=== PATIENT | male | born 1940 | race Hispanic/Latino ===

== ENCOUNTER 2019-01-23 18:55 | Inpatient (IN) | payer OTHER ==
[~2019-01-23] VITALS: Ht 165.1 cm; Wt 74.8 kg
[2019-01-23 19:59] LABS: APPEARANCE,URINE Clear (CLEAR); BILIRUBIN,URINE Negative (NEGATIVE); COLOR,URINE Yellow (YELLOW); GLUCOSE, URINE (UA) TRACE mg/dL (NEGATIVE); KETONES,URINE Negative (NEGATIVE); LEUKOCYTE ESTERASE ,URINE Negative (NEGATIVE); NITRATE,URINE Negative (NEGATIVE); OCCULT BLOOD,URINE Small (NEGATIVE); PROTEIN,URINE 300 mg/dL (NEGATIVE); UROBILINOGEN,URINE 0.2 mg/dL (0.2-1.0)
[2019-01-23 20:14] LABS: BACTERIA,URINE Few /HPF (None Seen); RBC,URINE 0-1 /HPF (0-1); WBC,URINE 0-1 /HPF (0-1)
[2019-01-23 20:15] LABS: AMORPHOUS SEDIMENT,UR Rare /LPF (None Seen); SQUAMOUS EPITHELIAL CELL,UR Rare /HPF (0-2)
[2019-01-23 20:16] LABS: ALBUMIN 3.5 g/dL (3.5-5.0); BILIRUBIN,TOTAL 0.3 mg/dL (0.2-1.0); CREATININE 7.5 mg/dL (0.5-1.5); POTASSIUM 5.6 mmol/L (3.5-5.1); TOTAL PROTEIN, SERUM 7.4 g/dL (6.0-8.3)
[2019-01-23] MEDS ORDERED: SODIUM CHLORIDE 0.9% 1000ML 1,000 ML IV ONE (20:34)
[2019-01-23 20:42] LABS: BASOPHILS % (AUTO) 0.8 % (0.0-5.0); EOSINOPHILS % (AUTO) 3.1 % (0.0-8.0); HEMATOCRIT 34.9 % (42-54); LYMPHOCYTES % (AUTO) 22.8 % (21.0-51.0); MEAN CORPUSCULAR HEMOGLOBIN 30.8 pg (27.0-33.0); MEAN CORPUSCULAR HGB CONC 33.6 g/dL (32.0-36.0); MEAN CORPUSCULAR VOLUME 91.9 fL (79-99); MONOCYTES % (AUTO) 8.8 % (3.0-13.0); NEUTROPHILS % (AUTO) 64.5 % (40.0-77.0); PLATELET COUNT (AUTO) 211 K/uL (130-400); RED CELL DISTRIBUTION WIDTH 13.8 % (11.0-15.5); WHITE BLOOD COUNT (AUTO) 6.3 K/uL (4.8-10.8)
[2019-01-23 20:54] LABS: INR 0.95 (0.85-1.15); PARTIAL THROMBOPLASTIN TIME 29.8 SEC (26.3-35.5)
[2019-01-23] MEDS ORDERED: ONDANSETRON HCL 4 MG/2 ML VIAL IV PRN (21:45)
[2019-01-23] MEDS ORDERED: ACETAMINOPHEN 325 MG TAB PO PRN (21:45)
[2019-01-23] MEDS ORDERED: SODIUM BICARB 50MEQ 50ML VIAL ONE (22:09)
[2019-01-23] MEDS ORDERED: DEXTROSE 50%-WATER 50 ML DISP.SYRIN IV ONE (22:10)
[2019-01-23] MEDS ORDERED: INSULIN HUMULIN R 100 UNIT/ML 3ML ONE (22:10)
[2019-01-23 23:42] VITALS: BP 147/59
[2019-01-24] VITALS (13 sets, daily range): BP systolic 99–143; BP diastolic 55–89
[2019-01-24] MEDS ORDERED: INSU300I SQ (02:52)
[2019-01-24] MEDS ORDERED: ROSU20TA31 PO (02:52)
[2019-01-24] MEDS ORDERED: INSU100I3 SQ (02:52)
[2019-01-24] MEDS ORDERED: TAMS-1 PO (02:52)
[2019-01-24] MEDS ORDERED: LOSA25TA41 PO (02:52)
[2019-01-24 04:12] LABS: BASOPHILS % (AUTO) 0.7 % (0.0-5.0); EOSINOPHILS % (AUTO) 2.8 % (0.0-8.0); HEMATOCRIT 30.7 % (42-54); LYMPHOCYTES % (AUTO) 23.2 % (21.0-51.0); MEAN CORPUSCULAR HEMOGLOBIN 31.3 pg (27.0-33.0); MEAN CORPUSCULAR HGB CONC 33.9 g/dL (32.0-36.0); MEAN CORPUSCULAR VOLUME 92.4 fL (79-99); MONOCYTES % (AUTO) 9.3 % (3.0-13.0); PLATELET COUNT (AUTO) 200 K/uL (130-400); RED BLOOD CELL COUNT(AUTO) 3.32 MIL/uL (4.50-6.20); RED CELL DISTRIBUTION WIDTH 13.7 % (11.0-15.5); WHITE BLOOD COUNT (AUTO) 7.2 K/uL (4.8-10.8)
[2019-01-24 04:32] LABS: CREATININE 7.1 mg/dL (0.5-1.5); POTASSIUM 4.6 mmol/L (3.5-5.1)
--- NOTE | 2019-01-24 05:45 | NUR ---
CHEST PRESSURE Patient AA&O X3 with at bedside. Patient states he is nauseated, dizzy, and starting to feel pressure on chest. On a pain scale of 0-10, patient states a 6. Discomfort/pain does not radiate. No shortness of breath or distress. Blood pressure:147/65, Heart rate:77, R: 18, O2Sat: 99% in room air, Temp: 98.0. Paged MD solar fabrication technician; KATT Fleming BULLET SLUGS INSPECTOR returned page. Informed BULLET SLUGS INSPECTOR of patient's diagnose and chest discomfort. Obtained order for stat EKG with cardiac panel and give Morphine 2 mg IVP. Patient may have Morphine 2 mg IVP Q6H prn. Will follow orders and will continue to monitor patient.
[2019-01-24] MEDS ORDERED: MORPHINE SULFATE 2 MG/ML 1ML SYG ONE (05:51)
[2019-01-24] MEDS ORDERED: MORPHINE SULFATE 2 MG/ML 1ML SYG IVP PRN (06:00)
[2019-01-24 06:16] LABS: CREATINE KINASE, TOTAL 119 U/L (21-232); MYOGLOBIN 278 ng/mL (10-92); TROPONIN I < 0.04 ng/mL (0.00-0.06)
--- NOTE | 2019-01-24 06:45 | NUR ---
STATUS OF PATIENT Patient is resting in bed with spouse at bedside. AA&O X3. No shortness of breath or distress. Patient states he no longer feels chest pressure but continues to feel dizziness; but overall feels much better. Instructed patient to not get up alone and to call for assistance. Patient's bed is currently on a bed alarm to prevent falls. Patient states he understands and will call for assistance. Bed at it's lowest and locked position. Call light within reach.
[2019-01-24] MEDS: INSULIN HUMULIN R 100 UNIT/ML 3ML SQ SCH ×4 (07:30→21:00)
[2019-01-24] MEDS: TAMSULOSIN HCL 0.4 MG CAP.ER.24H PO SCH (08:27)
[2019-01-24] MEDS: FAMOTIDINE 20MG TAB 20 MG TAB PO SCH (08:28)
[2019-01-24] MEDS: LOSARTAN 50 MG TABLET PO SCH (08:28)
[2019-01-24] MEDS: HEPARIN SODIUM 5000UNIT/ML 1ML VIAL SQ SCH ×2 (08:32→20:03)
[2019-01-24] MEDS ORDERED: LACTULOSE 20 GM/30 ML UDCUP PO SCH (09:30)
--- NOTE | 2019-01-24 13:00 | NUR ---
INITIAL- POSS HD? MET W PT AND SPOUSE- PT AAOX3, LIVES WITH MATTHEW, WHO WILL PROVIDER TRNAPSORT, HAS NOT DME, DRIVES, IS INDP OF ALL ADLS, AND HAS BEEN FOLLOWING WITH DR. MON FOR SOME TIME, STATES HE HAS BEEN MANAGING HIS CKD AND WANTS A PERITONEAL CATHETER AND HAS ALREADY HAD THE TRAINING FOR PD AT THE CLINIC EXPECT HD TO START ON THIS ADMISSION DC PLAN HOME AFTER HD SET UP AND PD CATH PLACED Addendum: 01/24/19 at 1819 by TEE ARGUETA RN CM Amended: Links added.
[2019-01-24 13:17] LABS: CREATININE,URINE RANDOM 50 mg/dL (30-135); SODIUM,URINE RANDOM 58 mmol/l (40-220)
[2019-01-24] MEDS ORDERED: SODIUM BICARB 50MEQ 50ML VIAL ONE (15:41)
[2019-01-24] MEDS ORDERED: LIDOCAINE HCL 2% 20ML ONE (15:41)
[2019-01-24] MEDS: ROSUVASTATIN CALCIUM 20 MG PO SCH (20:03)
[2019-01-24 21:44] LABS: HEMOGLOBIN A1C 6.4 % (4.0-6.0)
[2019-01-24 21:48] LABS: ALBUMIN 2.9 g/dL (3.5-5.0); CREATININE 7.1 mg/dL (0.5-1.5)
[2019-01-24 22:07] LABS: % IRON SATURATION 31.6 % (30-44)
[2019-01-25 00:06] VITALS: BP 122/58
[2019-01-25 04:15] VITALS: BP 120/81
[2019-01-25] MEDS: INSULIN HUMULIN R 100 UNIT/ML 3ML SQ SCH ×4 (05:31→20:34)
[2019-01-25 08:00] VITALS: BP 143/85
[2019-01-25 08:08] LABS: CREATININE 7.2 mg/dL (0.5-1.5)
[2019-01-25] MEDS: LOSARTAN 50 MG TABLET PO SCH (08:13)
[2019-01-25] MEDS: TAMSULOSIN HCL 0.4 MG CAP.ER.24H PO SCH (08:14)
[2019-01-25] MEDS: FAMOTIDINE 20MG TAB 20 MG TAB PO SCH (08:14)
[2019-01-25] MEDS: HEPARIN SODIUM 5000UNIT/ML 1ML VIAL SQ SCH ×2 (08:18→19:28)
[2019-01-25] MEDS ORDERED: ACETAMINOPHEN 325 MG TAB PO PRN (10:45)
[2019-01-25] MEDS ORDERED: LIDOCAINE HCL-MPF 1% 2ML VIAL IJ PRN (10:45)
[2019-01-25] MEDS ORDERED: HEPARIN SODIUM 5000UNIT/ML 1ML VIAL IJ PRN ×2 (10:45)
[2019-01-25] MEDS ORDERED: SODIUM CHLORIDE 0.9% 1000ML 1,000 ML IV PRN (10:45)
[2019-01-25] MEDS ORDERED: 0.9% SODIUM CHLORIDE 1000 ML IV BAG IV PRN (10:45)
[2019-01-25] MEDS ORDERED: NITROGLYCERIN 0.4 MG SL TAB SL PRN (10:45)
[2019-01-25 12:00] VITALS: BP 114/70
[2019-01-25 16:00] VITALS: BP 136/74
[2019-01-25] MEDS: ROSUVASTATIN CALCIUM 20 MG PO SCH (19:28)
[2019-01-25 20:00] VITALS: BP 131/80
[2019-01-26] VITALS: BP 118/77
[2019-01-26 03:40] VITALS: BP 116/75
[2019-01-26 06:10] LABS: HEMATOCRIT 31.8 % (42-54); MEAN CORPUSCULAR HEMOGLOBIN 31.1 pg (27.0-33.0); MEAN CORPUSCULAR HGB CONC 33.6 g/dL (32.0-36.0); MEAN CORPUSCULAR VOLUME 92.7 fL (79-99); PLATELET COUNT (AUTO) 183 K/uL (130-400); RED BLOOD CELL COUNT(AUTO) 3.43 MIL/uL (4.50-6.20); RED CELL DISTRIBUTION WIDTH 13.8 % (11.0-15.5); WHITE BLOOD COUNT (AUTO) 6.6 K/uL (4.8-10.8)
[2019-01-26 06:14] LABS: CREATININE 5.6 mg/dL (0.5-1.5); POTASSIUM 4.6 mmol/L (3.5-5.1)
[2019-01-26] MEDS: INSULIN HUMULIN R 100 UNIT/ML 3ML SQ SCH ×4 (06:35→20:16)
[2019-01-26 08:00] VITALS: BP 119/66
[2019-01-26] MEDS: LOSARTAN 50 MG TABLET PO SCH (09:11)
[2019-01-26] MEDS: FAMOTIDINE 20MG TAB 20 MG TAB PO SCH (09:11)
[2019-01-26] MEDS: TAMSULOSIN HCL 0.4 MG CAP.ER.24H PO SCH (09:11)
[2019-01-26 09:16] LABS: EOSINOPHILS % (MANUAL) 4 % (1-6); LYMPHOCYTES % (MANUAL) 19 % (22-44); MAN.DIFF COMMENT-IMPRESSION MANUAL DIFFERENTIAL; MONOCYTES % (MANUAL) 12 % (2-9); PLATELET MORPHOLOGY COMMENT ADEQUATE; SEGMENTED NEUTROPHILS % 65 % (40-70)
[2019-01-26] MEDS: LACTULOSE 20 GM/30 ML UDCUP PO PRN (09:19)
[2019-01-26] MEDS: HEPARIN SODIUM 5000UNIT/ML 1ML VIAL SQ SCH ×2 (09:19→20:15)
[2019-01-26 12:00] VITALS: BP 124/56
[2019-01-26 15:59] VITALS: BP 138/73
[2019-01-26 20:00] VITALS: BP 141/76
[2019-01-26] MEDS: ROSUVASTATIN CALCIUM 20 MG PO SCH ×2 (20:14→20:16)
[2019-01-27] VITALS (7 sets, daily range): BP systolic 105–142; BP diastolic 57–82
--- NOTE | 2019-01-27 03:22 | NUR ---
STATUS Pt resting quietly in bed,denies chest pain or discomfort.
[2019-01-27 04:50] LABS: EOSINOPHILS % (AUTO) 4.3 % (0.0-8.0); LYMPHOCYTES % (AUTO) 24.4 % (21.0-51.0); MEAN CORPUSCULAR HEMOGLOBIN 31.3 pg (27.0-33.0); MEAN CORPUSCULAR HGB CONC 34.4 g/dL (32.0-36.0); MONOCYTES % (AUTO) 10.5 % (3.0-13.0); NEUTROPHILS % (AUTO) 59.8 % (40.0-77.0); PLATELET COUNT (AUTO) 198 K/uL (130-400); RED BLOOD CELL COUNT(AUTO) 3.41 MIL/uL (4.50-6.20); RED CELL DISTRIBUTION WIDTH 13.7 % (11.0-15.5); WHITE BLOOD COUNT (AUTO) 6.6 K/uL (4.8-10.8)
[2019-01-27 05:06] LABS: POTASSIUM 4.6 mmol/L (3.5-5.1)
[2019-01-27] MEDS: INSULIN HUMULIN R 100 UNIT/ML 3ML SQ SCH ×4 (06:03→21:00)
[2019-01-27] MEDS: HEPARIN SODIUM 5000UNIT/ML 1ML VIAL SQ SCH ×2 (09:00→21:00)
--- NOTE | 2019-01-27 11:23 | NUR ---
SURGEON CÉSAR Brenner was paged to inform him of consult for placement of peritoneal dialysis catheter; pending for him to call back.
--- NOTE | 2019-01-27 12:00 | NUR ---
SURGEON FOLLOW UP Dr. Josue called back; informed him of consilt; stated he will come tomorrow to see patient.
--- NOTE | 2019-01-27 14:53 | NUR ---
RD NOTIFICATION DX: GBW, CKD. HX: DM, HTN, HYPERLIPIDEMIA, CKD. DIET: RENAL NON-DIALYSIS. PO 100% AND HAS GOOD APPETITE PER PT. LBM: 01/26. SKIN INTACT. NO NAUSEA, VOMITING OR DIARRHEA [id number]. PT NOW ON DIALYSIS. PT RECEIVING DIALYSIS TREATMENT [id number]. RD PROVIDED RENAL DIALYSIS DIET AND NUTRITION EDUCATION. PT VERBALIZED UNDERSTANDING AND ASKED QUESTIONS. PT WAS LEFT WITH NUTRITION HANDOUTS TO TAKE HOME. RD RECOMMENDS TO CHANGE DIET TO RENAL DIALYSIS. RD PROVIDED RENAL DIALYSIS NUTRITION AND DIET EDUCATION IN [place]. RD WILL CONTINUE TO MONITOR AND FOLLOW UP NEEDED. THANK YOU. Addendum: 01/27/19 at [address] RD Amended: Links added.
--- NOTE | 2019-01-27 14:54 | NUR ---
DIET EDUCATION PT NOW ON DIALYSIS. PT RECEIVING DIALYSIS TREATMENT [id number]. RENE PROVIDED RENAL DIALYSIS DIET AND NUTRITION EDUCATION. PT VERBALIZED UNDERSTANDING AND ASKED QUESTIONS. PT WAS LEFT WITH NUTRITION HANDOUTS TO TAKE HOME. Addendum: 01/27/19 at [address] Amended: Links added.
--- NOTE | 2019-01-27 15:19 | NUR ---
CM Note: Chanell Mari pending approval and chair time. CM met with pt and spouse discussed MD recommendations for outpatient dialysis. Pt and spouse agreeable, spouse signed [facility] for [facility]. Faxed order, clinicals, confirmation received. Pt pending permacath insertion and peritoneal access at this time. Pt pending approval and chair time. Primary nurse aware. CM to cont to follow up.
[2019-01-27] MEDS: FAMOTIDINE 20MG TAB 20 MG TAB PO SCH (18:51)
[2019-01-27] MEDS: LOSARTAN 50 MG TABLET PO SCH (18:51)
[2019-01-27] MEDS: TAMSULOSIN HCL 0.4 MG CAP.ER.24H PO SCH (18:51)
--- NOTE | 2019-01-27 19:00 | NUR ---
BRIONNA Wilkinson Rn,talking to pt and his re plan of care,Permacath placement in am and Dr Brenner to come tomorrow to evaluate re possible PD cath placement.Pt and seemed to understand,they are both Citizen Of [place] speaking.
--- NOTE | 2019-01-27 19:07 | NUR ---
CONSENT Obtained consent for PERM-A-CATH placement tomorrow. 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 Consent filed in chart.
[2019-01-27] MEDS: ROSUVASTATIN CALCIUM 20 MG PO SCH (21:00)
[2019-01-28] VITALS (13 sets, daily range): BP systolic 101–145; BP diastolic 41–90
[2019-01-28] MEDS: INSULIN HUMULIN R 100 UNIT/ML 3ML SQ SCH ×3 (05:59→21:00)
[2019-01-28 06:04] LABS: INR 0.94 (0.85-1.15); PROTHROMBIN TIME 9.9 SEC (9.6-11.6)
[2019-01-28 06:09] LABS: HEPATITIS Bs ANTIGEN SCREEN P Negative (Negative)
--- NOTE | 2019-01-28 06:28 | NUR ---
CHG Pt offered CHG bath per staff.
[2019-01-28] MEDS: HEPARIN SODIUM 5000UNIT/ML 1ML VIAL SQ SCH ×2 (09:00→21:14)
[2019-01-28] MEDS ORDERED: LIDOCAINE HCL 1% MDV 50ML VIAL ONE (11:55)
[2019-01-28] MEDS: ACETAMINOPHEN 325 MG TAB PO PRN (15:14)
[2019-01-28] MEDS: LOSARTAN 50 MG TABLET PO SCH (15:15)
[2019-01-28] MEDS: FAMOTIDINE 20MG TAB 20 MG TAB PO SCH (15:15)
[2019-01-28] MEDS: TAMSULOSIN HCL 0.4 MG CAP.ER.24H PO SCH (15:15)
--- NOTE | 2019-01-28 18:55 | NUR ---
NURSING NOTE DAY SHIFT Received patient at [facility] of shift in no distress. Had hemodialysis and a perm-a-cath plaed. Back from procedure and kept HOB elevated at 45 as ordered by MD. No issues. Medicated once for pain around insertion site area; and pain controlled. Dr. Brenner called and stated he will not be able to see patient today but that he will see patient tomorrow and he is not sure he will be able to insert peritoneal dialysis catheter tomorrow; possible the day after tomorrow. Patient and incoming nurse udpated. Patient stable and in no distress.
[2019-01-28] MEDS: ROSUVASTATIN CALCIUM 20 MG PO SCH (21:00)
--- NOTE | 2019-01-28 21:47 | NUR ---
COMFORT Pt aao x 3,watching tv.Denies pain or sob.Permacath to rt chest dressing dry and intact.
[2019-01-29 04:44] VITALS: BP 148/81
[2019-01-29] MEDS: INSULIN HUMULIN R 100 UNIT/ML 3ML SQ SCH ×4 (06:30→21:25)
[2019-01-29 07:00] VITALS: BP 129/73
[2019-01-29] MEDS: TAMSULOSIN HCL 0.4 MG CAP.ER.24H PO SCH (09:22)
[2019-01-29] MEDS: LOSARTAN 50 MG TABLET PO SCH (09:22)
[2019-01-29] MEDS: FAMOTIDINE 20MG TAB 20 MG TAB PO SCH (09:22)
[2019-01-29] MEDS: HEPARIN SODIUM 5000UNIT/ML 1ML VIAL SQ SCH ×2 (09:38→21:23)
--- NOTE | 2019-01-29 10:21 | NUR ---
CM Note: Chanell Mari pending approval and chair time Spoke to Trent mendez/Chanell [phone]. Pt has approval, chair time MWF 3rd shift. Aware pt pending peritoneal access placement. Primary nurse aware. CM to cont to follow up.
--- NOTE | 2019-01-29 10:24 | NUR ---
CM Note: Chanell Mari approval and chair time Spoke to Trent mendez/Chanell [phone]. Pt has approval, chair time MWF 3rd shift. Aware pt pending peritoneal access placement. Primary nurse aware. CM to cont to follow up.
[2019-01-29 11:00] VITALS: BP 124/61
--- NOTE | 2019-01-29 15:43 | NUR ---
CM Note: Pt given Chanell Mari instructions. CM met with pt made aware of approval for outpatient dialysis w/Chanell Adair. Aware to register Sunday morning if dc'd tomorrow or Sunday if pt stayed. Given instructions, aware to bring ID, insurance card, and all medication bottles during registration. Primary nurse aware. CM to cont to follow up.
[2019-01-29 16:00] VITALS: BP 107/49
[2019-01-29 20:00] VITALS: BP 116/70
[2019-01-29] MEDS: ROSUVASTATIN CALCIUM 20 MG PO SCH (21:00)
[2019-01-30] VITALS: BP 120/52
[2019-01-30] MEDS ORDERED: DEXTROSE 50%-WATER 50 ML DISP.SYRIN IV ONE (02:06)
[2019-01-30] MEDS ORDERED: DEXTROSE 50%-WATER 50 ML DISP.SYRIN IV PRN (02:30)
[2019-01-30] MEDS ORDERED: GLUCAGON 1MG KIT 1 MG ML IM PRN (02:30)
[2019-01-30 04:00] VITALS: BP 141/79
[2019-01-30 06:14] LABS: HEMATOCRIT 31.9 % (42-54); MEAN CORPUSCULAR HEMOGLOBIN 30.6 pg (27.0-33.0); MEAN CORPUSCULAR HGB CONC 33.1 g/dL (32.0-36.0); MEAN CORPUSCULAR VOLUME 92.6 fL (79-99); PLATELET COUNT (AUTO) 163 K/uL (130-400); RED BLOOD CELL COUNT(AUTO) 3.45 MIL/uL (4.50-6.20); RED CELL DISTRIBUTION WIDTH 13.3 % (11.0-15.5); WHITE BLOOD COUNT (AUTO) 6.3 K/uL (4.8-10.8)
[2019-01-30 06:29] LABS: CREATININE 5.3 mg/dL (0.5-1.5); PHOSPHORUS 4.3 mg/dL (2.5-4.9); POTASSIUM 4.2 mmol/L (3.5-5.1)
[2019-01-30] MEDS: INSULIN HUMULIN R 100 UNIT/ML 3ML SQ SCH ×4 (06:34→21:00)
[2019-01-30 07:11] VITALS: BP 129/64
[2019-01-30] MEDS: HEPARIN SODIUM 5000UNIT/ML 1ML VIAL SQ SCH ×2 (09:00→20:38)
--- NOTE | 2019-01-30 09:19 | NUR ---
PATIENT PENDING SURGERY . PER PATIENT HAS NOT EATEN OR DRANK ANY FLUIDS PAST MIDNIGHT
[2019-01-30 12:00] VITALS: BP 118/76
--- NOTE | 2019-01-30 12:20 | NUR ---
PATIENT ON DIALYSIS Addendum: 01/30/19 at 1224 by JUAN CARLOS RIVERA RN RN Amended: Links added.
[2019-01-30 16:00] VITALS: BP 129/73
[2019-01-30] MEDS: FAMOTIDINE 20MG TAB 20 MG TAB PO SCH (17:42)
[2019-01-30] MEDS: TAMSULOSIN HCL 0.4 MG CAP.ER.24H PO SCH (17:42)
[2019-01-30] MEDS: LOSARTAN 50 MG TABLET PO SCH (17:43)
[2019-01-30 20:00] VITALS: BP 118/62
[2019-01-30] MEDS: ROSUVASTATIN CALCIUM 20 MG PO SCH (20:37)
[2019-01-31] VITALS (26 sets, daily range): BP systolic 114–139; BP diastolic 39–80
[2019-01-31 04:52] LABS: INR 0.92 (0.85-1.15); PARTIAL THROMBOPLASTIN TIME 29.7 SEC (26.3-35.5); PROTHROMBIN TIME 9.7 SEC (9.6-11.6)
[2019-01-31] MEDS: INSULIN HUMULIN R 100 UNIT/ML 3ML SQ SCH ×4 (05:54→21:00)
[2019-01-31] MEDS: TAMSULOSIN HCL 0.4 MG CAP.ER.24H PO SCH (09:00)
[2019-01-31] MEDS: LOSARTAN 50 MG TABLET PO SCH (09:00)
[2019-01-31] MEDS: FAMOTIDINE 20MG TAB 20 MG TAB PO SCH (09:00)
[2019-01-31] MEDS ORDERED: BUPIVACAINE/PF 0.25% 30ML VIAL IJ ONE (12:23)
[2019-01-31] MEDS ORDERED: LIDOCAINE 1%-EPI 1:100,000 20 ML VIAL IJ ONE (12:23)
[2019-01-31] MEDS ORDERED: FENTANYL CITRATE PF 50 MCG/1 ML 2ML VIAL ONE (12:38)
[2019-01-31] MEDS ORDERED: PROPOFOL 10 MG/ML 20ML VIAL IV ONE (12:38)
[2019-01-31] MEDS ORDERED: LIDOCAINE PF 2% 5ML ABBOJECT ONE (12:38)
[2019-01-31] MEDS ORDERED: SUCCINYLCHOLINE 200MG/10ML SYR ONE (12:38)
[2019-01-31] MEDS ORDERED: ROCURONIUM 10MG/1ML SYR 10 MG/ML ML ONE (12:38)
--- NOTE | 2019-01-31 12:38 | NUR ---
PT UPDATE Pt off the floor for a procedure by Dr. Brenner
[2019-01-31] MEDS ORDERED: PHENYLEPHRINE HCL 10 MG/ML 1ML VIAL IV ONE (12:59)
[2019-01-31] MEDS ORDERED: SODIUM CHLORIDE 0.9% 10 ML VIAL ONE (12:59)
[2019-01-31] MEDS ORDERED: EPHEDRINE SULFATE 50 MG/ML AMPULE ONE (13:00)
[2019-01-31] MEDS ORDERED: NEOSTIGMINE 5MG/5ML SYR IV ONE (13:41)
[2019-01-31] MEDS ORDERED: GLYCOPYRROLATE 1 MG/5 ML SYRINGE ONE (13:41)
[2019-01-31] MEDS: HEPARIN SODIUM 5000UNIT/ML 1ML VIAL SQ SCH ×2 (17:04→21:21)
[2019-01-31] MEDS: ACETAMINOPHEN 325 MG TAB PO PRN (20:15)
[2019-01-31] MEDS: ROSUVASTATIN CALCIUM 20 MG PO SCH (21:11)
[2019-02-01 00:19] VITALS: BP 151/88
[2019-02-01 04:31] VITALS: BP 151/62
[2019-02-01] MEDS: INSULIN HUMULIN R 100 UNIT/ML 3ML SQ SCH ×4 (06:07→21:00)
[2019-02-01 08:00] VITALS: BP 131/93
[2019-02-01] MEDS: LOSARTAN 50 MG TABLET PO SCH (09:00)
[2019-02-01] MEDS: TAMSULOSIN HCL 0.4 MG CAP.ER.24H PO SCH (09:00)
[2019-02-01] MEDS: FAMOTIDINE 20MG TAB 20 MG TAB PO SCH (09:00)
[2019-02-01] MEDS: ACETAMINOPHEN 325 MG TAB PO PRN (11:04)
[2019-02-01] MEDS: HEPARIN SODIUM 5000UNIT/ML 1ML VIAL SQ SCH ×2 (11:51→21:17)
[2019-02-01 12:02] VITALS: BP 102/68
--- NOTE | 2019-02-01 12:27 | NUR ---
Dr Williamson and Leilani, OPERATIONS SUPPORT MANAGER notified patient with absent Bowel sounds. Abdomen distended and round. Tender upon palpation. Patient reporting he is passing gas. Last BM reported on 01/30. As per Leilani, place patient on clear liquid diet. No further orders.
[2019-02-01 16:00] VITALS: BP 110/62
[2019-02-01] MEDS ORDERED: ACETAMINOPHEN-CODEINE 300/30MG TAB PO PRN (19:45)
[2019-02-01 20:00] VITALS: BP 136/82
[2019-02-01] MEDS: ROSUVASTATIN CALCIUM 20 MG PO SCH (21:21)
[2019-02-02] VITALS: BP 119/84
[2019-02-02 04:00] VITALS: BP 138/81
[2019-02-02 06:21] LABS: HEMATOCRIT 31.3 % (42-54); MEAN CORPUSCULAR VOLUME 91.1 fL (79-99); PLATELET COUNT (AUTO) 166 K/uL (130-400); RED BLOOD CELL COUNT(AUTO) 3.44 MIL/uL (4.50-6.20); RED CELL DISTRIBUTION WIDTH 13.1 % (11.0-15.5); WHITE BLOOD COUNT (AUTO) 6.4 K/uL (4.8-10.8)
[2019-02-02 06:27] LABS: CREATININE 3.8 mg/dL (0.5-1.5)
[2019-02-02] MEDS: INSULIN HUMULIN R 100 UNIT/ML 3ML SQ SCH ×3 (06:31→16:30)
[2019-02-02 08:00] VITALS: BP 140/71
[2019-02-02] MEDS: FAMOTIDINE 20MG TAB 20 MG TAB PO SCH (09:50)
[2019-02-02] MEDS: LOSARTAN 50 MG TABLET PO SCH (09:50)
[2019-02-02] MEDS: TAMSULOSIN HCL 0.4 MG CAP.ER.24H PO SCH (09:50)
[2019-02-02] MEDS: HEPARIN SODIUM 5000UNIT/ML 1ML VIAL SQ SCH (09:55)
[2019-02-02] MEDS: LACTULOSE 20 GM/30 ML UDCUP PO PRN (09:57)
[2019-02-02 12:00] VITALS: BP 131/69
[2019-02-02 16:00] VITALS: BP 109/60
--- NOTE | 2019-02-02 18:03 | NUR ---
PT DISCHARGE UPDATE Pt discharge to home, Activity as tolerated, Pt to follow-up with PCP in 3 days, Hemodialysis as scheduled with Chanell, Pt scheduled for 3rd shift chair time, Nephrology in 1-2 week, Surgeon in 1-2 week/as indicated--for follow-up with peritoneal dialysis catheter, Continue home medication as indicated, Incision care teaching provided, peritoneal dialysis teaching also provided, Pt verbalize understanding of d/c instruction with spouse, Pt PIV taken out, no complication noted, permacath clean, dry and intact, All questions and concerns addressed.
== END 2019-02-02 17:35 | disposition home or self-care (01) | DRG 673 ==
LOC: EDH 18:55 → EDHIP 21:39 → 3BH 22:38
PROVIDERS: ADMIT Internal Medicine; ATTEND Internal Medicine
PROC: 02HV33Z Insertion of Infusion Device into Superior Vena Cava, Percutaneous Approach (ICD-10-PCS; 2019-01-24)
PROC: B548ZZA Ultrasonography of Superior Vena Cava, Guidance (ICD-10-PCS; 2019-01-24)
PROC: 5A1D70Z Performance of Urinary Filtration, Intermittent, Less than 6 Hours Per Day (ICD-10-PCS; 2019-01-25)
PROC: 5A1D70Z Performance of Urinary Filtration, Intermittent, Less than 6 Hours Per Day (ICD-10-PCS; 2019-01-27)
PROC: 0JH63XZ Insertion of Tunneled Vascular Access Device into Chest Subcutaneous Tissue and Fascia, Percutaneous Approach (ICD-10-PCS; principal; 2019-01-28)
PROC: 5A1D70Z Performance of Urinary Filtration, Intermittent, Less than 6 Hours Per Day (ICD-10-PCS; 2019-01-28)
PROC: 02H633Z Insertion of Infusion Device into Right Atrium, Percutaneous Approach (ICD-10-PCS; 2019-01-28)
PROC: B2141ZZ Fluoroscopy of Right Heart using Low Osmolar Contrast (ICD-10-PCS; 2019-01-28)
PROC: B244ZZZ Ultrasonography of Right Heart (ICD-10-PCS; 2019-01-28)
PROC: 5A1D70Z Performance of Urinary Filtration, Intermittent, Less than 6 Hours Per Day (ICD-10-PCS; 2019-01-30)
PROC: 0WHG43Z Insertion of Infusion Device into Peritoneal Cavity, Percutaneous Endoscopic Approach (ICD-10-PCS; 2019-01-31)
PROC: 5A1D70Z Performance of Urinary Filtration, Intermittent, Less than 6 Hours Per Day (ICD-10-PCS; 2019-02-01)
DX: I12.0 Hypertensive chronic kidney disease with stage 5 chronic kidney disease or end stage renal disease (principal); N18.6 End stage renal disease; N17.9 Acute kidney failure, unspecified; K57.30 Diverticulosis of large intestine without perforation or abscess without bleeding; E11.22 Type 2 diabetes mellitus with diabetic chronic kidney disease; N28.1 Cyst of kidney, acquired; E87.5 Hyperkalemia; E78.5 Hyperlipidemia, unspecified; G47.00 Insomnia, unspecified; Z99.2 Dependence on renal dialysis; D63.1 Anemia in chronic kidney disease; Z83.3 Family history of diabetes mellitus
CPT/HCPCS: 36415; 36556; 36558; 71045; 74176; 77001; 80048; 80053; 80061; 81001; 82040; 82150; 82550; 82565; 82570; 82728; 82948; 83036; 83540; 83550; 83690; 83874; 84100; 84132; 84145; 84300; 84484; 84520; 85014; 85018; 85025; 85027; 85610; 85730; 86701; 86704; 86706; 87340; 87390; 87520; 90935; 93005; 97039; C1750; C1752; G0378; J0330; J1644; J1815; J2001; J2370; J2405; J2704; J2710; J3010; J3490; J7030; J7070

== ENCOUNTER 2019-02-21 11:05 | Observation (INO) | payer OTHER ==
[~2019-02-21] VITALS: Ht 165.1 cm; Wt 76.1 kg
[~2019-02-21 11:05] MED LIST: INSU100I3 SQ; INSU300I SQ; LOSA25TA41 PO; ROSU20TA31 PO; TAMS-1 PO
[2019-02-21 12:01] LABS: EOSINOPHILS % (AUTO) 5.5 % (0.0-8.0); HEMATOCRIT 32.2 % (42-54); LYMPHOCYTES % (AUTO) 22.3 % (21.0-51.0); MEAN CORPUSCULAR HEMOGLOBIN 31.1 pg (27.0-33.0); MEAN CORPUSCULAR HGB CONC 33.5 g/dL (32.0-36.0); MEAN CORPUSCULAR VOLUME 92.7 fL (79-99); MONOCYTES % (AUTO) 9.8 % (3.0-13.0); NEUTROPHILS % (AUTO) 61.4 % (40.0-77.0); PLATELET COUNT (AUTO) 322 K/uL (130-400); RED BLOOD CELL COUNT(AUTO) 3.47 MIL/uL (4.50-6.20); RED CELL DISTRIBUTION WIDTH 13.4 % (11.0-15.5); WHITE BLOOD COUNT (AUTO) 7.9 K/uL (4.8-10.8)
[2019-02-21 12:04] LABS: CREATININE 5.4 mg/dL (0.5-1.5); POTASSIUM 4.3 mmol/L (3.5-5.1)
[2019-02-21 12:09] LABS: ALBUMIN 3.4 g/dL (3.5-5.0); BILIRUBIN,TOTAL 0.4 mg/dL (0.2-1.0); TOTAL PROTEIN, SERUM 7.4 g/dL (6.0-8.3)
[2019-02-21 12:23] LABS: INR 0.95 (0.85-1.15); PARTIAL THROMBOPLASTIN TIME 26.6 SEC (26.3-35.5)
[2019-02-21 15:30] VITALS: BP 155/74
[2019-02-21] MEDS ORDERED: FOLI0.8T22 PO (17:01)
[2019-02-21] MEDS ORDERED: FLUT15.845 NS (17:01)
[2019-02-21 19:05] VITALS: BP 143/82
[2019-02-21 20:56] LABS: CREATINE KINASE, TOTAL 126 U/L (21-232); MYOGLOBIN 298 ng/mL (10-92); TROPONIN I < 0.04 ng/mL (0.00-0.06)
[2019-02-22] VITALS (7 sets, daily range): BP systolic 104–135; BP diastolic 65–93
[2019-02-22 01:08] LABS: CREATINE KINASE, TOTAL 112 U/L (21-232); MYOGLOBIN 284 ng/mL (10-92); TROPONIN I < 0.04 ng/mL (0.00-0.06)
[2019-02-22 06:41] LABS: BASOPHILS % (AUTO) 0.9 % (0.0-5.0); EOSINOPHILS % (AUTO) 6.6 % (0.0-8.0); HEMATOCRIT 33.3 % (42-54); MEAN CORPUSCULAR HGB CONC 33.5 g/dL (32.0-36.0); MEAN CORPUSCULAR VOLUME 92.5 fL (79-99); MONOCYTES % (AUTO) 11.6 % (3.0-13.0); NEUTROPHILS % (AUTO) 61.9 % (40.0-77.0); PLATELET COUNT (AUTO) 277 K/uL (130-400); RED CELL DISTRIBUTION WIDTH 13.6 % (11.0-15.5); WHITE BLOOD COUNT (AUTO) 7.6 K/uL (4.8-10.8)
[2019-02-22 07:13] LABS: CARBON DIOXIDE 27 mmol/L (21-32); CHLORIDE 103 mmol/L (101-111); CREATINE KINASE, TOTAL 101 U/L (21-232); CREATININE 3.8 mg/dL (0.5-1.5); GLOMERULAR FILTR. RATE CALC 16 mL/min (>60); GLUCOSE,RANDOM 63 mg/dL (70-105); MYOGLOBIN 272 ng/mL (10-92); PHOSPHORUS 3.1 mg/dL (2.5-4.9); POTASSIUM 4.3 mmol/L (3.5-5.1); SODIUM SERUM 139 mmol/L (136-145); TROPONIN I < 0.04 ng/mL (0.00-0.06); UREA NITROGEN, BLOOD 31 mg/dL (7-18); URIC ACID 3.9 mg/dL (2.6-7.2)
[2019-02-22] MEDS: FAMOTIDINE 20MG TAB 20 MG TAB PO SCH (08:04)
[2019-02-22] MEDS: ENOXAPARIN SODIUM 30 MG/0.3 ML SQ SCH (08:05)
--- NOTE | 2019-02-22 13:06 | NUR ---
Nutrition Intervention: Nutrition consult due to trigger/education. Pt. admitted with Dx of Chest pain. Pt. on Renal Dialysis diet with good p.o. intake, as per pt. Labs reviewed(Alb 3.4, BG 243). Spoke with pt. regarding protein supplementation and pt. agreed to try. LBM: 02/22/19, per pt. SR-19, PD catheter midline abdomen. BMI: 27.7, overweight for age. Pt. eileen has been on HD for ~1 month at [facility]. Pt. declined nutrition education at this time. Pt. eileen has been educated on diet at [facility] and had no questions regarding diet at the moment. Recommendations: 1) Rec. 75gm CCD Renal Dialysis diet. 2) Rec. 30ml ProMod BID with B'fast and dinner meals. 3) Continue to monitor pt's nutritional status. 4) Consult RD as nutrition concerns arise. Addendum: 02/22/19 at [address] Amended: Links added.
[2019-02-22] MEDS ORDERED: GLUCAGON 1MG KIT 1 MG ML IM PRN (13:30)
[2019-02-22] MEDS ORDERED: DEXTROSE 50%-WATER 50 ML DISP.SYRIN IV PRN (13:30)
[2019-02-22] MEDS ORDERED: [UNRECOGNIZED DRUG - OTHER] SQ SCH (13:30)
[2019-02-22] MEDS ORDERED: INSULIN GLARGINE HUM REC ANLOG 300 UNIT SQ SCH (13:30)
[2019-02-22] MEDS ORDERED: LACTULOSE 20 GM/30 ML UDCUP PO SCH (13:30)
[2019-02-22] MEDS: INSULIN HUMULIN R 100 UNIT/ML 3ML SQ SCH ×2 (16:30→21:00)
[2019-02-22] MEDS ORDERED: LACTULOSE 20 GM/30 ML UDCUP PO PRN (17:15)
[2019-02-22] MEDS ORDERED: FOLIC ACID/VITAMIN B COMP W-C 1 MG CAP/TAB PO SCH (21:00)
[2019-02-22] MEDS ORDERED: ATORVASTATIN CALCIUM 40 MG TABLET PO SCH (21:00)
[2019-02-23 03:45] VITALS: BP 131/81
[2019-02-23] MEDS: INSULIN HUMULIN R 100 UNIT/ML 3ML SQ SCH ×2 (05:36→11:13)
[2019-02-23 06:05] LABS: BASOPHILS % (AUTO) 1.2 % (0.0-5.0); EOSINOPHILS % (AUTO) 6.5 % (0.0-8.0); HEMATOCRIT 32.3 % (42-54); LYMPHOCYTES % (AUTO) 20.4 % (21.0-51.0); MEAN CORPUSCULAR HEMOGLOBIN 30.8 pg (27.0-33.0); MEAN CORPUSCULAR HGB CONC 33.3 g/dL (32.0-36.0); MEAN CORPUSCULAR VOLUME 92.6 fL (79-99); MONOCYTES % (AUTO) 12.2 % (3.0-13.0); NEUTROPHILS % (AUTO) 59.7 % (40.0-77.0); PLATELET COUNT (AUTO) 257 K/uL (130-400); RED BLOOD CELL COUNT(AUTO) 3.48 MIL/uL (4.50-6.20); RED CELL DISTRIBUTION WIDTH 13.8 % (11.0-15.5); WHITE BLOOD COUNT (AUTO) 6.9 K/uL (4.8-10.8)
[2019-02-23 06:41] LABS: CREATININE 5.1 mg/dL (0.5-1.5); POTASSIUM 4.2 mmol/L (3.5-5.1)
[2019-02-23 08:00] VITALS: BP 136/89
[2019-02-23] MEDS ORDERED: TAMSULOSIN HCL 0.4 MG CAP.ER.24H PO SCH (09:00)
[2019-02-23] MEDS ORDERED: FLUTICASONE PROPIONATE 50MCG/SPRAY 16 GM BOTTLE EN SCH (09:00)
[2019-02-23] MEDS ORDERED: LOSARTAN 50 MG TABLET PO SCH (09:00)
[2019-02-23] MEDS: FAMOTIDINE 20MG TAB 20 MG TAB PO SCH (09:06)
[2019-02-23] MEDS: ENOXAPARIN SODIUM 30 MG/0.3 ML SQ SCH (09:07)
[2019-02-23] MEDS ORDERED: LACT10SO9 PO (10:40)
[2019-02-23 12:00] VITALS: BP 120/72
--- NOTE | 2019-02-23 13:50 | NUR ---
PATIENT DISCHARGED PATIENT DISCHARGED, IV DISCONTINUED, CATHLON INTACT, BLEEDING CONTROLLED, PATIENT TOLERATED WITHOUT INCIDENT. TELE REMOVED FROM PATIENT.
== END 2019-02-23 13:50 | disposition home or self-care (01) ==
LOC: EDH 11:05 → EDHIP 13:47 → 3DH 14:57
PROVIDERS: ADMIT Internal Medicine; ATTEND Internal Medicine
DX: R07.89 Other chest pain (principal); I12.0 Hypertensive chronic kidney disease with stage 5 chronic kidney disease or end stage renal disease; E11.22 Type 2 diabetes mellitus with diabetic chronic kidney disease; N18.6 End stage renal disease; I25.110 Atherosclerotic heart disease of native coronary artery with unstable angina pectoris; E78.5 Hyperlipidemia, unspecified; I45.2 Bifascicular block; R94.31 Abnormal electrocardiogram [ECG] [EKG]; D64.9 Anemia, unspecified; E11.51 Type 2 diabetes mellitus with diabetic peripheral angiopathy without gangrene; E78.00 Pure hypercholesterolemia, unspecified; N40.0 Benign prostatic hyperplasia without lower urinary tract symptoms; Z99.2 Dependence on renal dialysis; Z79.4 Long term (current) use of insulin; Z79.899 Other long term (current) drug therapy
CPT/HCPCS: 36415 ×3; 71045; 74018; 80048 ×2; 80053; 82550 ×4; 82948 ×5; 83735; 83874 ×3; 84100; 84484 ×4; 84550; 85025 ×3; 85610; 85730; 93005 ×4; 96372 ×2; 99284; G0378 ×45; J1650 ×2; 90935

== ENCOUNTER → 2019-04-14 | Outpatient (CLI) | payer OTHER ==
[~2019-04-14] MED LIST changes: +BRIM5DRO4 OP; +CALC667C10 PO; +FLUT15.845 NS; +FOLI0.8T22 PO; +LACT10SO9 PO; +LATA2.5D2 OP; +VITA1CAP17 PO
== END | disposition home or self-care (01) ==
LOC: SHCH 09:35
PROVIDERS: ATTEND Internal Medicine Cardiovascular Disease
DX: I10 Essential (primary) hypertension (principal)
CPT/HCPCS: 93306

== ENCOUNTER → 2019-04-18 | Outpatient (CLI) | payer OTHER ==
[~2019-04-18] VITALS: Ht 165.1 cm; Wt 77.1 kg
[~2019-04-18] MED LIST changes: -BRIM5DRO4 OP; -CALC667C10 PO; -LATA2.5D2 OP; +REGADENOSON 0.4 MG/5 ML PF SYG IVP SCH; -VITA1CAP17 PO
== END | disposition home or self-care (01) ==
LOC: SHCH 07:52
PROVIDERS: ATTEND Internal Medicine Cardiovascular Disease
DX: R07.9 Chest pain, unspecified (principal); R00.1 Bradycardia, unspecified
CPT/HCPCS: 78452; 93017; 96374; A9500 ×2; J2785

== ENCOUNTER 2019-04-28 06:46 | Day surgery (SDC) | payer OTHER ==
[2019-04-25 11:29] VITALS: BP 176/86
[2019-04-25 11:48] LABS: INR 0.93 (0.85-1.15); PARTIAL THROMBOPLASTIN TIME 28.1 SEC (26.3-35.5); PROTHROMBIN TIME 9.8 SEC (9.6-11.6)
[2019-04-25 11:50] LABS: CREATININE 6.1 mg/dL (0.5-1.5)
--- NOTE | 2019-04-25 12:44 | NUR ---
RE: ABNORMAL LABS REPORTS ABNORMAL LABS (K 6.0, BUN 91, CREAT 6.1) TO DR HOPPER, NO NEW ORDERS RECEIVED. Addendum: 04/25/19 at 1246 by JARED KANG RN RN (*REPORTED)
[~2019-04-28] VITALS: Ht 162.6 cm; Wt 78.5 kg
[~2019-04-28 06:46] MED LIST changes: +BRIM5DRO4 OP; +CALC667C10 PO; -LACT10SO9 PO; +LATA2.5D2 OP; -REGADENOSON 0.4 MG/5 ML PF SYG IVP SCH; +VITA1CAP17 PO
[2019-04-28 07:32] VITALS: BP 154/84
[2019-04-28] MEDS ORDERED: LIDOCAINE HCL 1% MDV 50ML VIAL ONE (09:21)
--- NOTE | 2019-04-28 09:45 | NUR ---
PERM-A-CATH REMOVAL PATIENT SCHEDULED FOR PERM-A-CATH REMOVAL. PROCEDURE PERFORMED AT BEDSIDE BY DR Taurus HOPPER WITH STERILE TECHNIQUE. PATIENT TOLERATED PROCEDURE WELL. PERM-A-CATH REMOVED FROM RT CHEST AND PRESSURE APPLIED. MINIMAL BLEEDING NOTED AND DRESSING APPLIED. DRESSING DRY AND INTACT. POST CHEST X-RAY ORDERED. REPORT GIVEN TO Gillian JIMENEZ RN.
[2019-04-28 10:00] VITALS: BP 150/87
[2019-04-28 10:15] VITALS: BP 150/84
[2019-04-28 10:30] VITALS: BP 142/78
[2019-04-28 10:45] VITALS: BP 154/83
[2019-04-28 11:00] VITALS: BP 144/85
== END 2019-04-28 11:10 | disposition home or self-care (01) ==
LOC: DAH 06:46
PROVIDERS: ATTEND Internal Medicine Nephrology
DX: Z45.2 Encounter for adjustment and management of vascular access device (principal); I12.0 Hypertensive chronic kidney disease with stage 5 chronic kidney disease or end stage renal disease; E11.22 Type 2 diabetes mellitus with diabetic chronic kidney disease; N18.6 End stage renal disease; D63.1 Anemia in chronic kidney disease; E78.5 Hyperlipidemia, unspecified; F41.9 Anxiety disorder, unspecified; F32.9 Major depressive disorder, single episode, unspecified; Z79.4 Long term (current) use of insulin; Z79.899 Other long term (current) drug therapy; Z82.3 Family history of stroke; Z83.3 Family history of diabetes mellitus; Z82.49 Family history of ischemic heart disease and other diseases of the circulatory system
CPT/HCPCS: 36415; 36589; 71045; 80048; 82948; 85610; 85730; A4606; A4663; J3490

== ENCOUNTER → 2019-07-29 | Outpatient (CLI) | payer OTHER | END | disposition home or self-care (01) | LOC: RAH 10:19 | PROVIDERS: ATTEND Urology | DX: N27.1 Small kidney, bilateral (principal); N18.9 Chronic kidney disease, unspecified; R31.0 Gross hematuria | CPT/HCPCS: 76770 ==

== ENCOUNTER → 2020-08-03 | Outpatient (CLI) | payer OTHER ==
[~2020-08-03] MED LIST changes: +LATA2.5D14 OP; -LATA2.5D2 OP
== END | disposition home or self-care (01) ==
LOC: RAH 09:53
PROVIDERS: ATTEND Physical Medicine & Rehabilitation
DX: M50.323 Other cervical disc degeneration at C6-C7 level (principal); M19.012 Primary osteoarthritis, left shoulder
CPT/HCPCS: 72040; 73030

== ENCOUNTER → 2020-11-19 | Outpatient (CLI) | payer OTHER | END | disposition home or self-care (01) | LOC: RAH 10:32 | PROVIDERS: ATTEND Physical Medicine & Rehabilitation | DX: M17.0 Bilateral primary osteoarthritis of knee (principal); M25.862 Other specified joint disorders, left knee; M25.861 Other specified joint disorders, right knee ==

== ENCOUNTER → 2021-05-03 | Outpatient (CLI) | payer OTHER | END | disposition home or self-care (01) | LOC: RAH 07:45 | PROVIDERS: ATTEND Physical Medicine & Rehabilitation | DX: M75.02 Adhesive capsulitis of left shoulder (principal); M75.112 Incomplete rotator cuff tear or rupture of left shoulder, not specified as traumatic; M19.012 Primary osteoarthritis, left shoulder; M25.712 Osteophyte, left shoulder | CPT/HCPCS: 73221 ==

== ENCOUNTER → 2021-09-29 | Outpatient (CLI) | payer OTHER | END | disposition home or self-care (01) | LOC: SHCH 11:13 | PROVIDERS: ATTEND Internal Medicine Cardiovascular Disease | DX: I08.0 Rheumatic disorders of both mitral and aortic valves (principal); I11.9 Hypertensive heart disease without heart failure | CPT/HCPCS: 93306 ==

== ENCOUNTER → 2021-12-05 | Outpatient (CLI) | payer OTHER ==
[~2021-12-05] VITALS: Ht 165.1 cm; Wt 82.1 kg
[~2021-12-05] MED LIST changes: +REGADENOSON 0.4 MG/5 ML PF SYG IVP SCH
== END | disposition home or self-care (01) ==
LOC: SHCH 09:18
PROVIDERS: ATTEND Internal Medicine Cardiovascular Disease
DX: I45.10 Unspecified right bundle-branch block (principal); R07.9 Chest pain, unspecified
CPT/HCPCS: 78452; 96374; 93017; J2785; A9500 ×2

== ENCOUNTER → 2022-03-01 | Outpatient (CLI) | payer OTHER ==
[~2022-03-01] MED LIST changes: +ACET-2893 PO; -CALC667C10 PO; +FISH1CAP20 PO; -FLUT15.845 NS; -FOLI0.8T22 PO; +FOLI1TAB85 PO; -LOSA25TA41 PO; +METO-409 PO; +NIFE-39 PO; -REGADENOSON 0.4 MG/5 ML PF SYG IVP SCH; -ROSU20TA31 PO; +SEVE800T27 PO; -VITA1CAP17 PO
== END | disposition home or self-care (01) ==
LOC: RAH 09:20
PROVIDERS: ATTEND Internal Medicine
DX: M19.071 Primary osteoarthritis, right ankle and foot (principal); M79.674 Pain in right toe(s)
CPT/HCPCS: 73620

== ENCOUNTER → 2022-06-19 | Outpatient (CLI) | payer OTHER ==
[~2022-06-19] MED LIST changes: +DOCU100C33 PO; -NIFE-39 PO; +NIFE30TA98 PO
== END | disposition home or self-care (01) ==
LOC: RAH 08:05
DX: J96.01 Acute respiratory failure with hypoxia (principal); I51.7 Cardiomegaly; M47.815 Spondylosis without myelopathy or radiculopathy, thoracolumbar region
CPT/HCPCS: 71046

== ENCOUNTER → 2022-08-21 | Outpatient (CLI) | payer OTHER ==
[~2022-08-21] MED LIST changes: -BRIM5DRO4 OP; +BRIM5DRO5 OP; -DOCU100C33 PO; -LATA2.5D14 OP; -SEVE800T27 PO
[2022-08-21 12:22] LABS: BASOPHILS % (AUTO) 0.9 % (0.0-5.0); EOSINOPHILS % (AUTO) 3.4 % (0.0-8.0); HEMATOCRIT 37.1 % (42-54); LYMPHOCYTES % (AUTO) 15.8 % (21.0-51.0); MEAN CORPUSCULAR HEMOGLOBIN 30.1 pg (27.0-33.0); MEAN CORPUSCULAR HGB CONC 31.5 g/dL (32.0-36.0); MEAN CORPUSCULAR VOLUME 95.4 fL (79-99); MONOCYTES % (AUTO) 10.2 % (3.0-13.0); NEUTROPHILS % (AUTO) 69.4 % (40.0-77.0); PLATELET COUNT (AUTO) 288 K/uL (130-400); RED BLOOD CELL COUNT(AUTO) 3.89 MIL/uL (4.50-6.20); RED CELL DISTRIBUTION WIDTH 14.8 % (11.0-15.5)
[2022-08-21 12:44] LABS: ALBUMIN 3.5 g/dL (3.5-5.0); CREATININE 7.2 mg/dL (0.5-1.5); MAGNESIUM 2.1 mg/dL (1.80-2.40); TOTAL PROTEIN, SERUM 7.3 g/dL (6.0-8.3)
== END | disposition home or self-care (01) ==
LOC: LAB 11:18
PROVIDERS: ATTEND Internal Medicine Cardiovascular Disease
DX: I10 Essential (primary) hypertension (principal); I48.0 Paroxysmal atrial fibrillation
CPT/HCPCS: 36415; 80053; 83735; 84439; 85025

== ENCOUNTER → 2022-09-08 | Outpatient (CLI) | payer OTHER | END | disposition home or self-care (01) | LOC: RAH 08:57 | PROVIDERS: ATTEND Internal Medicine | DX: M19.071 Primary osteoarthritis, right ankle and foot (principal); M77.31 Calcaneal spur, right foot; L60.8 Other nail disorders | CPT/HCPCS: 73630 ==

== ENCOUNTER → 2022-09-20 | Outpatient (CLI) | payer OTHER | END | disposition home or self-care (01) | LOC: SHCH 09:14 | PROVIDERS: ATTEND Internal Medicine Cardiovascular Disease | DX: I08.0 Rheumatic disorders of both mitral and aortic valves (principal); I48.0 Paroxysmal atrial fibrillation; I11.9 Hypertensive heart disease without heart failure; E78.5 Hyperlipidemia, unspecified; I49.8 Other specified cardiac arrhythmias | CPT/HCPCS: 93306 ==

== ENCOUNTER → 2022-09-27 | Outpatient (CLI) | payer OTHER | END | disposition home or self-care (01) | LOC: WHH 08:33 | PROVIDERS: ATTEND Podiatrist Foot & Ankle Surgery | DX: I70.235 Atherosclerosis of native arteries of right leg with ulceration of other part of foot (principal); E11.622 Type 2 diabetes mellitus with other skin ulcer; L97.512 Non-pressure chronic ulcer of other part of right foot with fat layer exposed; E11.22 Type 2 diabetes mellitus with diabetic chronic kidney disease; I13.11 Hypertensive heart and chronic kidney disease without heart failure, with stage 5 chronic kidney disease, or end stage renal disease; N18.6 End stage renal disease; E11.51 Type 2 diabetes mellitus with diabetic peripheral angiopathy without gangrene; I48.0 Paroxysmal atrial fibrillation; E78.5 Hyperlipidemia, unspecified; N40.0 Benign prostatic hyperplasia without lower urinary tract symptoms; M19.071 Primary osteoarthritis, right ankle and foot; Z79.4 Long term (current) use of insulin | CPT/HCPCS: G0463; A4450 ==

== ENCOUNTER → 2022-10-18 | Outpatient (CLI) | payer OTHER ==
[~2022-10-18] MED LIST changes: +AMLO-257 PO; +APIX2.5T PO; +CALC0.253 PO; +NIFE-78 PO; -NIFE30TA98 PO; +ROSU10TA28 PO
== END | disposition home or self-care (01) ==
LOC: WHH 08:24
PROVIDERS: ATTEND Podiatrist Foot & Ankle Surgery
DX: I70.235 Atherosclerosis of native arteries of right leg with ulceration of other part of foot (principal); E11.621 Type 2 diabetes mellitus with foot ulcer; L97.512 Non-pressure chronic ulcer of other part of right foot with fat layer exposed; I70.202 Unspecified atherosclerosis of native arteries of extremities, left leg; E11.22 Type 2 diabetes mellitus with diabetic chronic kidney disease; I13.11 Hypertensive heart and chronic kidney disease without heart failure, with stage 5 chronic kidney disease, or end stage renal disease; N18.6 End stage renal disease; E11.51 Type 2 diabetes mellitus with diabetic peripheral angiopathy without gangrene; I48.0 Paroxysmal atrial fibrillation; E78.5 Hyperlipidemia, unspecified; N40.0 Benign prostatic hyperplasia without lower urinary tract symptoms; M19.071 Primary osteoarthritis, right ankle and foot; Z79.4 Long term (current) use of insulin
CPT/HCPCS: G0463

== ENCOUNTER 2022-10-23 06:10 | Day surgery (SDC) | payer OTHER ==
[2022-10-20 08:59] LABS: EOSINOPHILS % (AUTO) 2.8 % (0.0-8.0); HEMATOCRIT 40.4 % (42-54); LYMPHOCYTES % (AUTO) 16.2 % (21.0-51.0); MEAN CORPUSCULAR HEMOGLOBIN 28.9 pg (27.0-33.0); MEAN CORPUSCULAR HGB CONC 31.2 g/dL (32.0-36.0); MEAN CORPUSCULAR VOLUME 92.7 fL (79-99); NEUTROPHILS % (AUTO) 68.6 % (40.0-77.0); PLATELET COUNT (AUTO) 260 K/uL (130-400); RED BLOOD CELL COUNT(AUTO) 4.36 MIL/uL (4.50-6.20); RED CELL DISTRIBUTION WIDTH 14.8 % (11.0-15.5); WHITE BLOOD COUNT (AUTO) 8.4 K/uL (4.8-10.8)
[2022-10-20 09:11] LABS: PROTHROMBIN TIME 10.9 SEC (9.6-11.6)
[2022-10-20 09:12] LABS: ALBUMIN 3.4 g/dL (3.5-5.0); CREATININE 5.1 mg/dL (0.5-1.5); PARTIAL THROMBOPLASTIN TIME 31.9 SEC (26.3-35.5); POTASSIUM 4.5 mmol/L (3.5-5.1); TOTAL PROTEIN, SERUM 7.7 g/dL (6.0-8.3)
[2022-10-20 09:15] VITALS: BP 122/71
[~2022-10-23] VITALS: Ht 165.1 cm; Wt 76.4 kg
[2022-10-23] VITALS (18 sets, daily range): BP systolic 106–146; BP diastolic 55–90
[~2022-10-23 06:10] MED LIST changes: -ACET-2893 PO; -BRIM5DRO5 OP; -FISH1CAP20 PO; -INSU100I3 SQ; -INSU300I SQ; -NIFE-78 PO
[2022-10-23] MEDS ORDERED: 0.9% NACL 500ML IV.SOLN 500 ML IV ONE (07:42)
[2022-10-23 08:01] LABS: CREATININE 5.9 mg/dL (0.5-1.5); POTASSIUM 4.5 mmol/L (3.5-5.1)
[2022-10-23] MEDS: CEFAZOLIN SODIUM 2 GM VIAL ONE ×2 (08:09→09:33)
[2022-10-23] MEDS ORDERED: MIDAZOLAM HCL 1 MG/ML 2ML VIAL ONE (08:23)
[2022-10-23] MEDS ORDERED: ROCURONIUM 10MG/1ML SYR 10 MG/ML ML ONE (08:23)
[2022-10-23] MEDS ORDERED: LIDOCAINE PF 100MG/5ML (2%) SYRINGE 5ML ONE (08:23)
[2022-10-23] MEDS ORDERED: PROPOFOL 10 MG/ML 20ML VIAL IV ONE (08:23)
[2022-10-23] MEDS ORDERED: FENTANYL CITRATE PF 50 MCG/1 ML 2ML VIAL ONE (08:24)
[2022-10-23] MEDS ORDERED: DEXAMETHASONE SOD PHOSPHATE 4 MG/ML 1ML VIAL ONE (09:35)
[2022-10-23] MEDS ORDERED: ONDANSETRON 4MG INJ ONE (09:36)
[2022-10-23] MEDS ORDERED: PHENYLEPHRINE HCL 10 MG/ML 1ML VIAL IV ONE (09:38)
[2022-10-23] MEDS ORDERED: BUPIVACAINE/PF 0.5% 30ML VIAL ONE (09:40)
[2022-10-23] MEDS ORDERED: GLYCOPYRROLATE 1 MG/5 ML SYRINGE ONE (09:43)
[2022-10-23] MEDS ORDERED: NEOSTIGMINE 5MG/5ML SYR IV ONE (10:09)
[2022-10-23] MEDS ORDERED: SUGAMMADEX SODIUM 200 MG/2 ML VIAL IV ONE (10:25)
== END 2022-10-23 12:25 | disposition home or self-care (01) ==
LOC: DAH 06:10
PROVIDERS: ATTEND Student in an Organized Health Care Education/Training Program
DX: T82.49XA Other complication of vascular dialysis catheter, initial encounter (principal); Z20.822 Contact with and (suspected) exposure to COVID-19; K42.9 Umbilical hernia without obstruction or gangrene; E11.22 Type 2 diabetes mellitus with diabetic chronic kidney disease; I12.0 Hypertensive chronic kidney disease with stage 5 chronic kidney disease or end stage renal disease; N18.6 End stage renal disease; I45.10 Unspecified right bundle-branch block; Z79.899 Other long term (current) drug therapy; Z99.2 Dependence on renal dialysis; Y92.89 Other specified places as the place of occurrence of the external cause; Y83.8 Other surgical procedures as the cause of abnormal reaction of the patient, or of later complication, without mention of misadventure at the time of the procedure
CPT/HCPCS: 80053; 85025; 85610; 85730; 87426; 36415 ×2; 49326; 49325; 80048; 82948 ×2; 93005; A6260; J1100; J7030; J7040; J3010; J3490 ×2; J2710; J2001; J2250; J2704; J2405; J2370; J0690; A6204; C1769 ×2; G0168; A4649; A4930; A4215; A4222; A4221

== ENCOUNTER → 2022-11-15 | Outpatient (CLI) | payer OTHER ==
[~2022-11-15] MED LIST changes: +CALC667C10 PO; +DORZ10DR19 OP; +INSU100I43 SQ; +INSU300I3 SQ; +OMEG-148 PO
== END | disposition home or self-care (01) ==
LOC: SHCH 14:34
PROVIDERS: ATTEND Internal Medicine Cardiovascular Disease
DX: I70.203 Unspecified atherosclerosis of native arteries of extremities, bilateral legs (principal)
CPT/HCPCS: 82948; 93925